=== PATIENT | female | born 1985 | race Caucasian/White ===

== ENCOUNTER 2018-08-17 13:20 | Outpatient (CLI) | payer SELFPAY | END 2018-08-17 13:21 | disposition EMS.NT | LOC: EMS 13:20 | PROVIDERS: ATTEND Surgery | DX: S51.832A Puncture wound without foreign body of left forearm, initial encounter (principal); W54.0XXA Bitten by dog, initial encounter; Y92.009 Unspecified place in unspecified non-institutional (private) residence as the place of occurrence of the external cause ==

== ENCOUNTER 2018-08-17 14:36 | Emergency (ER) | payer MEDICAID ==
[2018-08-17] MEDS ORDERED: BUFFERED LIDOCAINE 10 ML SYRINGE SUBQ STA (14:45)
[2018-08-17] MEDS ORDERED: AMOX/CLAV 875 MG/125 MG TABLET PO STA (14:45)
[2018-08-17] MEDS ORDERED: TETANUS/DIPHTHERIA/PERTUSSIS 0.5 ML SYRINGE IM ONE (14:45)
--- NOTE | 2018-08-17 14:47 | ED Physician Documentation ---
PD HPI UPPER EXT INJURY - Stated complaint Stated Complaint: RT HAND LAC - Chief complaint Chief Complaint: Wound - History obtained from History obtained from: Patient - History of Present Illness Location: Right (This is a 32-year-old woman who is not up-to-date on tetanus, her parents Kenia roper bit her about the right hand and wrist at home just prior to arrival. The dog is up-to-date on immunizations. They had already [facility] prior to arrival.) Review of Systems Constitutional: reports: Reviewed and negative Cardiac: reports: Reviewed and negative Respiratory: reports: Reviewed and negative PD PAST MEDICAL HISTORY - Present Medications Home Medications: Ambulatory Orders Medication Instructions Recorded Confirmed Amox/Clav 875/125 [Augmentin] 1 each PO Q12H #14 tablet 08/17/18 - Allergies Allergies/Adverse Reactions: Allergies Allergy/AdvReac Type Severity Reaction Status Date / Time No Known Drug Allergies Allergy Verified 08/17/18 14:45 PD ED PE NORMAL - Vitals Vital signs reviewed: Yes - General General: Alert and oriented X 3, No acute distress - Extremities Extremities: Other (There is a single wound on the palmar side of the left hand at the level of the carpal tunnel without distal neurovascular compromise measuring about 8 mm and another 1 cm just proximal to the dorsal wrist flexor/extensor crease without distal neurovascular compromise.) Results - Vitals Vitals: Vital Signs - 24 hr 08/17/18 14:41 Temperature 37.2 C Heart Rate 105 H Respiratory 18 Rate Blood Pressure 182/94 H O2 Saturation 100 Oxygen O2 Source Room air Procedures - Laceration (location) R hand Length in cm: 1 Wound type: Linear, Superficial Neurovascular status: Sensory intact, Motor intact, Vascular intact Anesthesia: Lidocaine 1%, With bicarb Wound Preparation: Irrigated copiously NS Skin layer closure: Nylon, Interrupted, Size #-0 - enter number (4-0), Sutures - enter # (1) Other: Tetanus booster given Complexity: Simple R wrist Length in cm: 0.8 Wound type: Linear Neurovascular status: Sensory intact, Motor intact, Vascular intact Anesthesia: Lidocaine 1%, With bicarb Wound Preparation: Irrigated copiously NS Skin layer closure: Nylon, Interrupted, Size #-0 - enter number (4-0), Sutures - enter # (1) Other: Tetanus booster given Complexity: Simple Departure - Departure Disposition: 01 Home, Self Care Clinical Impression: Animal bite with open wound Condition: Good Record reviewed to determine appropriate education?: Yes Health Concerns: Dog bites Plan of Treatment: Sutured, abx, wound care Care Goals: healing Assessment: as above Instructions: ED Bite Animal General Prescriptions: Amox/Clav 875/125 [Augmentin] 1 each PO Q12H #14 tablet Comments: Come back for any signs of infection which would include: Redness, swelling, drainage, increased pain, or fevers. You can wash it soap and water. Keep it covered and moist with bacitracin ointment which is available over the counter; avoid neosporin. Follow-up with your physician in 14 days for suture removal. Your blood pressure was elevated today on check into the emergency department. This does not mean that you have hypertension, it is a common phenomenon to come to the emergency department and have elevated blood pressure. I recommend that you see your primary care physician within the week to have it rechecked when you are feeling better.
[2018-08-17 15:06] VITALS: BP 149/94
== END 2018-08-17 15:14 | disposition home or self-care (01) ==
LOC: ED 14:36
DX: S61.451A Open bite of right hand, initial encounter (principal); S61.551A Open bite of right wrist, initial encounter; W54.0XXA Bitten by dog, initial encounter; Y92.009 Unspecified place in unspecified non-institutional (private) residence as the place of occurrence of the external cause; Z23 Encounter for immunization; R03.0 Elevated blood-pressure reading, without diagnosis of hypertension
CPT/HCPCS: 12001; 90471; 90715; 99283; A9270